=== PATIENT | male | born 1970 | race Hispanic/Latino ===

== ENCOUNTER 2019-12-24 12:03 | Emergency (ER) | payer MEDICAID, OTHER ==
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
[2019-12-24 13:10] LABS: BARBITURATE SCREEN,URINE NEGATIVE (NEGATIVE); BENZODIAZEPINES SCREEN,URINE POSITIVE (NEGATIVE); EDDP,URINE SCREEN NEGATIVE (NEGATIVE); METHAMPHETAMINE SCREEN, URINE NEGATIVE (NEGATIVE); TCA SCREEN,URINE NEGATIVE (NEGATIVE); THC SCREEN,URINE 50 NG/ML NEGATIVE (NEGATIVE)
--- NOTE | 2019-12-24 13:14 | CR ---
[id number] RAD/RAD Chest PA And Lateral EXAM: FRONTAL AND LATERAL CHEST INDICATION: CHEST PAIN. COMPARISON: None. DISCUSSION: The lungs are mildly hypoinflated with central vascular crowding and mild basilar atelectasis. These findings could obscure other pathology, but no infiltrates are identified. Normal heart size. IMPRESSION: 1. Low lung volumes, otherwise negative. Jayce Fung MD 12/24/19 [id number] Thank you for allowing us to participate in the care of your patient.
[2019-12-24 13:22] LABS: CHLORIDE,CL 105 mmol/L (98-107); SODIUM,NA 143 mmol/L (136-145)
[2019-12-24 13:27] LABS: ANION GAP 14.7 mmol/L (10-20)
[2019-12-24] MEDS ORDERED: Acetaminophen 500 MG Tab PO ONE (13:35)
== END 2019-12-24 15:25 ==
LOC: VM.ED 12:03
DX: F41.9 Anxiety disorder, unspecified (principal); F32.9 Major depressive disorder, single episode, unspecified; F20.9 Schizophrenia, unspecified; I11.0 Hypertensive heart disease with heart failure; I50.9 Heart failure, unspecified; I25.2 Old myocardial infarction; J44.9 Chronic obstructive pulmonary disease, unspecified; Z20.828 Contact with and (suspected) exposure to other viral communicable diseases; Z79.01 Long term (current) use of anticoagulants; Z79.899 Other long term (current) drug therapy; Z88.8 Allergy status to other drugs, medicaments and biological substances; Z88.5 Allergy status to narcotic agent; Z91.041 Radiographic dye allergy status; Z91.013 Allergy to seafood
CPT/HCPCS: 36415; 71046; 80053; 80305-QW; 81001; 82550; 83615; 83880; 84484; 85025; 93005; 99285-25; U0002